=== PATIENT | male | born 1965 | race Caucasian/White ===

== ENCOUNTER 2018-05-25 14:01 | Emergency (ER) | payer SELFPAY ==
[~2018-05-25] VITALS: Ht 170.2 cm; Wt 89.0 kg
[2018-05-25] MEDS ORDERED: MORPHINE SULFATE 4 MG/ML CPJ (NOT FOR IM USE) IV STA (19:21)
[2018-05-25] MEDS ORDERED: ONDANSETRON HCL 4MG/2ML INJ IV STA (19:21)
[2018-05-25] MEDS ORDERED: SODIUM CHLORIDE 0.9% 1,000 ML IV ONE (19:21)
[2018-05-25] MEDS ORDERED: MORPHINE SULFATE 10 MG/ML CPJ IV NR (19:45)
[2018-05-25 19:47] LABS: CHLORIDE 104 mEq/L (98-107); HEMOGLOBIN. 17.2 g/dL (14.0-18.0); MEAN CORPUSCULAR HEMOGLOBIN 29.6 pg (28.0-32.0); MEAN CORPUSCULAR VOLUME 89.7 fL (80.0-94.0); MEAN PLATELET VOLUME 7.4 fl (7.4-10.4); PLATELET 360 x1000/uL (130-400); RED CELL DISTRIBUTION WIDTH 14.1 % (11.6-14.6)
[2018-05-25 19:52] LABS: PARTIAL THROMBOPLASTIN TIME 24.5 sec (23.4-31.0)
[2018-05-25 20:38] LABS: PLATELET ESTIMATE NORMAL
[2018-05-25 23:58] LABS: CLARITY URINE CLEAR (CLEAR); COLOR URINE YELLOW (YELLOW); KETONES URINE TRACE (NEGATIVE); LEUKOCYTE ESTERASE URINE NEGATIVE (NEGATIVE); NITRITE URINE NEGATIVE (NEGATIVE); OCCULT BLOOD URINE NEGATIVE (NEGATIVE); PH URINE 5.5 (4.5-8.0); PROTEIN URINE TRACE (NEGATIVE); SPECIFIC GRAVITY URINE 1.035 (1.005-1.030)
[2018-05-26 01:00] VITALS: BP 136/83
== END 2018-05-26 01:44 | disposition home or self-care (01) ==
LOC: EDSEX 14:01 → ER 14:01
DX: R10.12 Left upper quadrant pain (principal); R11.10 Vomiting, unspecified; R19.7 Diarrhea, unspecified; F15.10 Other stimulant abuse, uncomplicated
CPT/HCPCS: 36415; 71045; 74176; 80053; 81003; 83690; 85025; 85610; 85730; 93005; 96361; 96374; 96375; 99285; J2270; J2405; J7030; J7050